=== PATIENT | female | born 1995 | race Caucasian/White ===

== ENCOUNTER 2018-04-05 07:01 | Inpatient (IN) | payer BC ==
[2018-04-05] MEDS ORDERED: diphenhydrAMINE 50 MG/ML SDV IVPUSH PRN (07:58)
[2018-04-05] MEDS ORDERED: fentaNYL 100 MCG/2 ML SDV EPIDUR PRN (07:58)
[2018-04-05] MEDS ORDERED: ePHEDrine 50 MG/ML SDV IVPUSH PRN (07:58)
[2018-04-05] MEDS ORDERED: Bupivacaine/fentaNYL/NS 100 ML Bag EPIDUR SCH (08:00)
[2018-04-05] MEDS ORDERED: Sodium Chloride 0.9% 10 ML Syringe FLUSH PRN (08:01)
[2018-04-05] MEDS ORDERED: Lactated Ringers 1,000 ML IV SCH (08:15)
[2018-04-05] MEDS ORDERED: Oxytocin/Lactated Ringers 10 UNIT/1,000 ML BAG IV SCH ×2 (08:15)
--- NOTE | 2018-04-05 08:38 | PCM.PREANE ---
Preanesthetic Assessment - Anesthesia/Transfusion/Family Hx Anesthesia History: Prior Anesthesia Without Reaction Family History of Anesthesia Reaction: No Transfusion History: No Prior Transfusion(s) - Review of Systems General: No Symptoms Pulmonary: No Symptoms Cardiovascular: No Symptoms Gastrointestinal: Abdominal Pain (labor contractions) Neurological: No Symptoms Other: Reports: None - Physical Assessment Pulse: 99 O2 Sat by Pulse Oximetry: 99 Respiratory Rate: 18 Blood Pressure: 112/63 Temperature: 36.7 C Vital Signs: Last Vital Signs Temp 36.7 C 04/05/18 07:20 Pulse 95 04/05/18 07:20 Resp 18 04/05/18 07:20 BP 112/63 04/05/18 07:20 Pulse Ox 99 04/05/18 07:20 Height: 1.7 m Weight: 89.086 kg ASA Class: 2 Mental Status: Alert & Oriented x3 Airway Class: Mallampati = 1 Dentition: Reports: Normal Dentition Thyro-Mental Finger Breadths: 3 Mouth Opening Finger Breadths: 3 ROM/Head Extension: Full Lungs: Clear to Auscultation, Normal Respiratory Effort Cardiovascular: Regular Rate, Regular Rhythm - Lab Values: Laboratory Last Values WBC 11.74 K/mm3 (3.98-10.04) H 04/05/18 07:50 RBC 3.47 M/mm3 (3.98-5.22) L 04/05/18 07:50 Hgb 10.1 gm/L (11.2-15.7) L 04/05/18 07:50 Hct 31.8 % (34.1-44.9) L 04/05/18 07:50 MCV 91.6 fl (79.4-94.8) 04/05/18 07:50 MCH 29.1 pg (25.6-32.2) 04/05/18 07:50 MCHC 31.8 g/dl (32.2-35.5) L 04/05/18 07:50 RDW Std Deviation 45.6 fL (36.4-46.3) 04/05/18 07:50 Plt Count 249 K/mm3 (182-369) 04/05/18 07:50 MPV 9.9 fl (9.4-12.3) 04/05/18 07:50 Neut % (Auto) 74.1 % (34.0-71.1) H 04/05/18 07:50 Lymph % (Auto) 17.0 % (19.3-51.7) L 04/05/18 07:50 [place] % (Auto) 7.2 % (4.7-12.5) 04/05/18 07:50 Eos % (Auto) 0.4 (0.7-5.8) L 04/05/18 07:50 Baso % (Auto) 0.3 % (0.1-1.2) 04/05/18 07:50 Neut # (Auto) 8.69 K/mm3 (1.56-6.13) H 04/05/18 07:50 Lymph # (Auto) 1.99 K/mm3 (1.18-3.74) 04/05/18 07:50 [place] # (Auto) 0.85 K/mm3 (0.24-0.36) H 04/05/18 07:50 Eos # (Auto) 0.05 K/mm3 (0.04-0.36) 04/05/18 07:50 Baso # (Auto) 0.04 K/mm3 (0.01-0.08) 04/05/18 07:50 - Allergies Allergies/Adverse Reactions: Allergies Allergy/AdvReac Type Severity Reaction Status Date / Time hydrocodone AdvReac Nausea Verified 04/05/18 08:02 - Anesthesia Plan Pre-Op Medication Ordered: None - Acknowledgements Anesthesia Type Planned: Epidural Pt an Appropriate Candidate for the Planned Anesthesia: Yes Alternatives and Risks of Anesthesia Discussed w Pt/Guardian: Yes Pt/Guardian Understands and Agrees with Anesthesia Plan: Yes PreAnesthesia Questionnaire HEENT History: Reports: Glaucoma [employer]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, Other OB/BYN History: invetro - Past Surgical History HEENT Surgical History: Reports: Oral Surgery ([place] tooth extraction), Tonsillectomy GI Surgical History: Reports: Colonoscopy Female Surgical History: Reports: Other (See Below) (Fulguration of endometriosis) - SUBSTANCE USE Smoking Status *Q: Former Smoker Tobacco Use Within Last Twelve Months: No Second Hand Smoke Exposure: No Days Per Week of Alcohol Use: 0 Number of Drinks Per Day: 0 Total Drinks Per Week: 0 Recreational Drug Use History: No - HOME MEDS Home Medications: Home Meds Estradiol 0 mg PO DAILY 08/06/16 [History] Glaucoma Gtt 1 drop TOP BID 08/06/16 [History] PNV95/Ferrous Fumarate/FA [ Tablet] 1 tab PO DAILY 08/06/16 [History] Progesterone 0 mg INJECT DAILY 08/06/16 [History] - CURRENT (IN HOUSE) MEDS Current Meds: Current Medications Diphenhydramine HCl (Benadryl) 25 mg IVPUSH Q6H PRN PRN Reason: Itching Ephedrine Sulfate (Ephedrine Sulfate) 5 mg IVPUSH ASDIRECTED PRN PRN Reason: HYPOTENTSION Fentanyl (Sublimaze) 100 mcg EPIDUR Q3H PRN PRN Reason: Pain Fentanyl/Bupivacaine HCl (Fentanyl/Bupivacaine/Ns 2 Mcg-0.125% 100 Ml) 100 ml EPIDUR ASDIRECTED ALAYNA Lactated Ringer's (Ringers, Lactated) 1,000 mls @ 100 mls/hr IV ASDIRECTED ALAYNA Last Admin: 04/05/18 08:13 Dose: 100 mls/hr Oxytocin/Lactated Ringer's (Pitocin In Lr 10 Units/1,000 Ml) 10 unit in 1,000 mls @ 12 mls/hr IV TITRATE ALAYNA; Protocol Last Admin: 04/05/18 08:13 Dose: 2 munits/min, 12 mls/hr Oxytocin/Lactated Ringer's (Pitocin In Lr 10 Units/1,000 Ml) 10 unit in 1,000 mls @ 100 mls/hr IV .CONTINUOUS ALAYNA Sodium Chloride (Saline Flush) 10 ml FLUSH ASDIRECTED PRN PRN Reason: Keep Vein Open
--- NOTE | 2018-04-05 10:25 | PCM.LDHP ---
L&D History of Present Illness - General Date of Service: 04/05/18 Admit Problem/Dx: Patient Status Order with Admit Dx/Problem 04/05/18 08:01 Patient Status [ADT] Routine Admission Diagnosis/Problem Admission Diagnosis/Problem Source of Information: Patient History Limitations: Reports: No Limitations - History of Present Illness Introduction:: Patient is a 22 y/o at 39 0/7 wks who presents for elective IOL. Doing well. Has had some contractions. No LOF or VB. No other concerns. - Related Data Allergies/Adverse Reactions: Allergies Allergy/AdvReac Type Severity Reaction Status Date / Time hydrocodone AdvReac Nausea Verified 04/05/18 08:02 Home Medications: Home Meds Estradiol 0 mg PO DAILY 08/06/16 [History] Glaucoma Gtt 1 drop TOP BID 08/06/16 [History] PNV95/Ferrous Fumarate/FA [ Tablet] 1 tab PO DAILY 08/06/16 [History] Progesterone 0 mg INJECT DAILY 08/06/16 [History] Past Medical History HEENT History: Reports: Glaucoma [employer]ED P[employer] History: Reports: Endometriosis, : 2 Para: 1 ( twins) LMP (Approximate): - Past Surgical History HEENT Surgical History: Reports: Oral Surgery ([place] tooth extraction), Tonsillectomy GI Surgical History: Reports: Colonoscopy Female Surgical History: Reports: Other (See Below) (Fulguration of endometriosis) Social & Family History - Family History Family Medical History: Noncontributory - Tobacco Use Smoking Status *Q: Former Smoker Years of Tobacco use: 1 Packs/Tins Daily: 0.5 Used Tobacco, but Quit: No Second Hand Smoke Exposure: No - Caffeine Use Caffeine Use: Reports: None - Alcohol Use Alcohol Use History: No Days Per Week of Alcohol Use: 0 Number of Drinks Per Day: 0 Total Drinks Per Week: 0 - Recreational Drug Use Recreational Drug Use: No - Living Situation & Occupation Living situation: Reports: , with Spouse Occupation: Employed H&P Review of Systems - Review of Systems: Review Of Systems: See Below General: Reports: No Symptoms Pulmonary: Reports: No Symptoms Cardiovascular: Reports: No Symptoms Gastrointestinal: Reports: No Symptoms Genitourinary: Reports: No Symptoms Musculoskeletal: Reports: No Symptoms Neurological: Reports: No Symptoms L&D Exam - Exam Exam: See Below - Vital Signs Vital Signs: Last Vital Signs Temp 36.7 C 04/05/18 08:38 Pulse 99 04/05/18 08:38 Resp 18 04/05/18 08:38 BP 112/63 04/05/18 08:38 Pulse Ox 99 04/05/18 08:38 Weight: 89.086 kg - OB Specific Contraction Intensity: Irritability Movement: Active Heart Tones: Present Heart Tones per Min: 145 Heart Rate (FHR) Variability: Moderate (6-25 bmp) Presentation: Vertex - Jose Score Jose Score Cervix Position: Midposition Jose Score Consistency: Soft Jose Score Effacement: 51-70% Jose Score Dilation: 1-2 cm Jose Score 's Station: -2 Jose Score Total: 7 - Exam General: Alert, Oriented, Cooperative Lungs: Clear to Auscultation, Normal Respiratory Effort Cardiovascular: Regular Rate, Regular Rhythm GI/Abdominal Exam: Soft, Non-Tender Genitourinary: Normal external exam Extremities: Normal Inspection Skin: Warm, Dry, Intact - Patient Data Lab Results Last 24 hrs: Laboratory Results - last 24 hr 04/05/18 Range/Units 07:50 WBC 11.74 H (3.98-10.04) K/mm3 RBC 3.47 L (3.98-5.22) M/mm3 Hgb 10.1 L (11.2-15.7) gm/L Hct 31.8 L (34.1-44.9) % MCV 91.6 (79.4-94.8) fl MCH 29.1 (25.6-32.2) pg MCHC 31.8 L (32.2-35.5) g/dl RDW Std Deviation 45.6 (36.4-46.3) fL Plt Count 249 (182-369) K/mm3 MPV 9.9 (9.4-12.3) fl Neut % (Auto) 74.1 H (34.0-71.1) % Lymph % (Auto) 17.0 L (19.3-51.7) % [place] % (Auto) 7.2 (4.7-12.5) % Eos % (Auto) 0.4 L (0.7-5.8) Baso % (Auto) 0.3 (0.1-1.2) % Neut # (Auto) 8.69 H (1.56-6.13) K/mm3 Lymph # (Auto) 1.99 (1.18-3.74) K/mm3 [place] # (Auto) 0.85 H (0.24-0.36) K/mm3 Eos # (Auto) 0.05 (0.04-0.36) K/mm3 Baso # (Auto) 0.04 (0.01-0.08) K/mm3 Manual Slide Review Normal smear Result Diagrams: 04/05/18 07:50 - Problem List (1) 39 weeks gestation of SNOMED Code(s): 05450324 ICD Code: Z3A.39 - 39 WEEKS GESTATION OF Status: Acute Current Visit: Yes (2) Rh negative state in antepartum period SNOMED Code(s): 268828640 ICD Code: O09.899 - SUPERVISION OF OTHER HIGH RISK PREGNANCIES, UNSP TRIMESTER; Z67.91 - UNSPECIFIED BLOOD TYPE, RH NEGATIVE Status: Acute Current Visit: Yes Problem List Initiated/Reviewed/Updated: Yes Orders Last 24hrs: Active Orders 24 hr Category Date Time Status Patient Status [ADT] Routine ADT 04/05/18 08:01 Active Activity as Tolerated [RC] PFP Care 04/05/18 08:01 Active Communication Order [RC] ASDIRECTED Care 04/05/18 07:58 Active Communication Order [RC] ASDIRECTED Care 04/05/18 08:01 Active Cooling Warming Measures [RC] ASDIRECTED Care 04/05/18 07:57 Active Heart Tones [RC] ASDIRECTED Care 04/05/18 08:02 Active Non Stress Test [RC] PER UNIT ROUTINE Care 04/05/18 08:01 Active Notify Provider [RC] ASDIRECTED Care 04/05/18 07:58 Active Notify Provider [RC] PFP Care 04/05/18 08:01 Active Notify Provider [RC] PRN Care 04/05/18 08:01 Active Oxygen Therapy [RC] ASDIRECTED Care 04/05/18 07:57 Active Peripheral IV Care [RC] . DIRECTED Care 04/05/18 08:02 Active Pulse Oximetry [RC] ASDIRECTED Care 04/05/18 07:57 Active Verify Patient Consent Obtain [RC] ASDIRECTED Care 04/05/18 07:58 Active Vital Signs [RC] ASDIRECTED Care 04/05/18 07:57 Active Vital Signs [RC] PER UNIT ROUTINE Care 04/05/18 08:01 Active Regular Diet [DIET] Diet 04/05/18 Breakfast Active RAPID PLASMA REAGIN,RPR [CHEM] Stat Lab 04/05/18 07:50 Received Bupivacaine/fentaNYL/NS [fentaNYL/Bupivacaine/NS 2 MCG- Med 04/05/18 08:00 Active 0.125% 100 ML] 100 ml EPIDUR ASDIRECTED Lactated Ringers [Ringers, Lactated] 1,000 ml Med 04/05/18 08:15 Active IV ASDIRECTED Oxytocin/Lactated Ringers [Pitocin in LR 10 Units/1,000 Med 04/05/18 08:15 Active ML] 10 unit in 1,000 ml IV .CONTINUOUS Oxytocin/Lactated Ringers [Pitocin in LR 10 Units/1,000 Med 04/05/18 08:15 Active ML] 10 unit in 1,000 ml IV TITRATE Sodium Chloride 0.9% [Saline Flush] Med 04/05/18 08:01 Active 10 ml FLUSH ASDIRECTED PRN diphenhydrAMINE [Benadryl] Med 04/05/18 07:58 Active 25 mg IVPUSH Q6H PRN ePHEDrine [ePHEDrine Sulfate] Med 04/05/18 07:58 Active 5 mg IVPUSH ASDIRECTED PRN fentaNYL [Sublimaze] Med 04/05/18 07:58 Active 100 mcg EPIDUR Q3H PRN Electronic Heart Tones Ext w TOCO [WOMSER] Oth 04/05/18 08:01 Ordered Routine Electronic Heart Tones Internal [WOMSER] Per Unit Oth 04/05/18 08:01 Ordered Routine Peripheral IV Insertion Adult [OM.PC] Routine Oth 04/05/18 08:01 Ordered Resuscitation Status Routine Resus Stat 04/05/18 08:01 Ordered Medication Orders Diphenhydramine HCl (Benadryl) 25 mg IVPUSH Q6H PRN PRN Reason: Itching Ephedrine Sulfate (Ephedrine Sulfate) 5 mg IVPUSH ASDIRECTED PRN PRN Reason: HYPOTENTSION Fentanyl (Sublimaze) 100 mcg EPIDUR Q3H PRN PRN Reason: Pain Fentanyl/Bupivacaine HCl (Fentanyl/Bupivacaine/Ns 2 Mcg-0.125% 100 Ml) 100 ml EPIDUR ASDIRECTED ALAYNA Lactated Ringer's (Ringers, Lactated) 1,000 mls @ 100 mls/hr IV ASDIRECTED ALAYNA Last Admin: 04/05/18 08:13 Dose: 100 mls/hr Oxytocin/Lactated Ringer's (Pitocin In Lr 10 Units/1,000 Ml) 10 unit in 1,000 mls @ 12 mls/hr IV TITRATE ALAYNA; Protocol Last Titration: 04/05/18 09:45 Dose: 6 munits/min, 36 mls/hr Titration: 04/05/18 09:05 Dose: 4 munits/min, 24 mls/hr Admin: 04/05/18 08:13 Dose: 2 munits/min, 12 mls/hr Oxytocin/Lactated Ringer's (Pitocin In Lr 10 Units/1,000 Ml) 10 unit in 1,000 mls @ 100 mls/hr IV .CONTINUOUS ALAYNA Sodium Chloride (Saline Flush) 10 ml FLUSH ASDIRECTED PRN PRN Reason: Keep Vein Open Assessment/Plan Comment:: 22 y/o at 39 0/7 wks who presents for elective IOL * CBC, T&S, RPR * GBS negative, no need for antibiotics * Pitocin to be started, AROM when able * Pain management per patient preference * Anticipate
--- NOTE | 2018-04-05 13:01 | PCM.PNLD ---
Labor Progress Note - VS & Meds Vital Signs: Last Vital Signs Temp 36.7 C 04/05/18 08:38 Pulse 99 04/05/18 08:38 Resp 18 04/05/18 08:38 BP 112/63 04/05/18 08:38 Pulse Ox 99 04/05/18 08:38 Active Medications: Current Medications Diphenhydramine HCl (Benadryl) 25 mg IVPUSH Q6H PRN PRN Reason: Itching Ephedrine Sulfate (Ephedrine Sulfate) 5 mg IVPUSH ASDIRECTED PRN PRN Reason: HYPOTENTSION Fentanyl (Sublimaze) 100 mcg EPIDUR Q3H PRN PRN Reason: Pain Fentanyl/Bupivacaine HCl (Fentanyl/Bupivacaine/Ns 2 Mcg-0.125% 100 Ml) 100 ml EPIDUR ASDIRECTED ALAYNA Lactated Ringer's (Ringers, Lactated) 1,000 mls @ 100 mls/hr IV ASDIRECTED ALAYNA Last Admin: 04/05/18 08:13 Dose: 100 mls/hr Oxytocin/Lactated Ringer's (Pitocin In Lr 10 Units/1,000 Ml) 10 unit in 1,000 mls @ 12 mls/hr IV TITRATE ALAYNA; Protocol Last Titration: 04/05/18 11:34 Dose: 11 munits/min, 66 mls/hr Oxytocin/Lactated Ringer's (Pitocin In Lr 10 Units/1,000 Ml) 10 unit in 1,000 mls @ 100 mls/hr IV .CONTINUOUS ALAYNA Sodium Chloride (Saline Flush) 10 ml FLUSH ASDIRECTED PRN PRN Reason: Keep Vein Open - Uterine Contractions Uterine Monitoring Mode: External [place] Contraction Intensity: Mild to Moderate Uterine Resting Tone: Soft - Monitoring Monitor Mode: External Ultrasound Heart Rate (FHR) Baseline: 140 Heart Rate (FHR) Variability: Moderate (6-25 bmp) Accelerations: Present, 15x15 Decelerations: None Strip Review: Category I - Vaginal Exam Dilation (cm): 2 Effacement (Percent): 75 Station: -2 Cervical Position: Midposition - Labor Progress (Free Text) Labor Progress: Doing well. Feeling mildly uncomfortable with contractions. AROM performed. Continue present management
--- NOTE | 2018-04-05 17:20 | PCM.SN ---
- Free Text/Narrative Note: 1705 called to room 29 for c/o pain. Patient educated on pain coverage of an epidural. Epidural gtt increased to 16ml/hr VSS out of room at 1720
--- NOTE | 2018-04-05 19:20 | PCM.DEL ---
L & D Note - General Info Date of Service: 04/05/18 - Delivery Note Labor: Induced by ARM, Induced by Oxytocin Delivery Outcome: Livebirth Infant Delivery Method: Spontaneous Vaginal Delivery-Single Infant Delivery Mode: Spontaneous Presentation: Right Occiput Anterior (MONICA) Nuchal Cord: None Anesthesia Type: Epidural Amniotic Fluid Description: Clear Episiotomy Type: None Laceration: None Placenta: Intact, Spontaneous Cord: 3 Vessels Estimated Blood Loss: 100 Resuscitation Needed: Yes House: Bulb Syringe, Stimulated, Warmed, [place] Used, Warmer Used Delivery Comments (Free Text/Narrative):: Patient found to be complete and began pushing. With maternal pushing effort head delivered from an [place] presentation. No nuchal cord present. With gentle downward traction the shoulders and body delivered. placed on maternal abdomen. Cord clamped and cut. Cord blood obtained. Placenta allowed time to separate and expelled intact. Inspection of the perineum showed no lacerations. - General Info Date of Service: 04/05/18 - Patient Data Vitals - Most Recent: Last Vital Signs Temp 36.7 C 04/05/18 08:38 Pulse 99 04/05/18 08:38 Resp 18 04/05/18 08:38 BP 112/63 04/05/18 08:38 Pulse Ox 99 04/05/18 08:38 Weight - Most Recent: 89.086 kg I&O - Last 24 Hours: Intake & Output 04/05/18 04/05/18 04/05/18 06:59 14:59 22:59 Intake Total 120 120 Balance 120 120 Lab Results Last 24 Hours: Laboratory Results - last 24 hr 04/05/18 04/05/18 Range/Units 07:50 07:50 WBC 11.74 H (3.98-10.04) K/mm3 RBC 3.47 L (3.98-5.22) M/mm3 Hgb 10.1 L (11.2-15.7) gm/L Hct 31.8 L (34.1-44.9) % MCV 91.6 (79.4-94.8) fl MCH 29.1 (25.6-32.2) pg MCHC 31.8 L (32.2-35.5) g/dl RDW Std Deviation 45.6 (36.4-46.3) fL Plt Count 249 (182-369) K/mm3 MPV 9.9 (9.4-12.3) fl Neut % (Auto) 74.1 H (34.0-71.1) % Lymph % (Auto) 17.0 L (19.3-51.7) % [place] % (Auto) 7.2 (4.7-12.5) % Eos % (Auto) 0.4 L (0.7-5.8) Baso % (Auto) 0.3 (0.1-1.2) % Neut # (Auto) 8.69 H (1.56-6.13) K/mm3 Lymph # (Auto) 1.99 (1.18-3.74) K/mm3 [place] # (Auto) 0.85 H (0.24-0.36) K/mm3 Eos # (Auto) 0.05 (0.04-0.36) K/mm3 Baso # (Auto) 0.04 (0.01-0.08) K/mm3 Manual Slide Review Normal smear RPR Non-reactive (NONREACTIVE) Med Orders - Current: Current Medications Diphenhydramine HCl (Benadryl) 25 mg IVPUSH Q6H PRN PRN Reason: Itching Ephedrine Sulfate (Ephedrine Sulfate) 5 mg IVPUSH ASDIRECTED PRN PRN Reason: HYPOTENTSION Fentanyl (Sublimaze) 100 mcg EPIDUR Q3H PRN PRN Reason: Pain Last Admin: 04/05/18 15:58 Dose: 100 mcg Fentanyl/Bupivacaine HCl (Fentanyl/Bupivacaine/Ns 2 Mcg-0.125% 100 Ml) 100 ml EPIDUR ASDIRECTED ALAYNA Last Admin: 04/05/18 15:58 Dose: 100 ml Lactated Ringer's (Ringers, Lactated) 1,000 mls @ 100 mls/hr IV ASDIRECTED ALAYNA Last Admin: 04/05/18 08:13 Dose: 100 mls/hr Oxytocin/Lactated Ringer's (Pitocin In Lr 10 Units/1,000 Ml) 10 unit in 1,000 mls @ 12 mls/hr IV TITRATE ALAYNA; Protocol Last Titration: 04/05/18 17:45 Dose: 18 munits/min, 108 mls/hr Oxytocin/Lactated Ringer's (Pitocin In Lr 10 Units/1,000 Ml) 10 unit in 1,000 mls @ 100 mls/hr IV .CONTINUOUS ALAYNA Sodium Chloride (Saline Flush) 10 ml FLUSH ASDIRECTED PRN PRN Reason: Keep Vein Open - Problem List & Annotations (1) 39 weeks gestation of SNOMED Code(s): 58522563 Code(s): Z3A.39 - 39 WEEKS GESTATION OF Status: Acute Current Visit: Yes (2) Rh negative state in antepartum period SNOMED Code(s): 904475271 Code(s): O09.899 - SUPERVISION OF OTHER HIGH RISK PREGNANCIES, UNSP TRIMESTER ; Z67.91 - UNSPECIFIED BLOOD TYPE, RH NEGATIVE Status: Acute Current Visit: Yes (3) Vaginal delivery SNOMED Code(s): 915846098 Code(s): O80 - ENCOUNTER FOR FULL-TERM UNCOMPLICATED DELIVERY Status: Acute Current Visit: Yes - Problem List Review Problem List Initiated/Reviewed/Updated: Yes - My Orders Last 24 Hours: My Active Orders 04/05/18 08:01 Patient Status [ADT] Routine Activity as Tolerated [RC] PFP Communication Order [RC] ASDIRECTED Non Stress Test [RC] PER UNIT ROUTINE Notify Provider [RC] PFP Notify Provider [RC] PRN Vital Signs [RC] PER UNIT ROUTINE Sodium Chloride 0.9% [Saline Flush] 10 ml FLUSH ASDIRECTED PRN Electronic Heart Tones Ext w TOCO [WOMSER] Routine Electronic Heart Tones Internal [WOMSER] Per Unit Routine Peripheral IV Insertion Adult [OM.PC] Routine Resuscitation Status Routine 04/05/18 08:02 Heart Tones [RC] ASDIRECTED Peripheral IV Care [RC] . DIRECTED 04/05/18 08:15 Lactated Ringers [Ringers, Lactated] 1,000 ml IV ASDIRECTED Oxytocin/Lactated Ringers [Pitocin in LR 10 Units/1,000 ML] 10 unit in 1,000 ml IV .CONTINUOUS Oxytocin/Lactated Ringers [Pitocin in LR 10 Units/1,000 ML] 10 unit in 1,000 ml IV TITRATE 04/05/18 Breakfast Regular Diet [DIET] - Assessment Assessment:: 22 y/o G2 now P1103 PPD#0 from at 39 0/7 wks - Plan Plan:: * Routine cares * Encourage breast feeding * Mom Rh negative, will assess blood type to see if Rhogam required * Discharge home in 1-2 days
[2018-04-05] MEDS ORDERED: Witch Hazel Medicated Pads 100/Jar TOP PRN (19:42)
[2018-04-05] MEDS ORDERED: Benzocaine/Menthol 20%-0.5% Spray 56 GM Canister TOP PRN (19:42)
[2018-04-05] MEDS ORDERED: Docusate Sodium 100 MG Cap PO PRN (19:42)
[2018-04-05] MEDS ORDERED: Lanolin 100% Cream 7 GM Tube TOP PRN (19:42)
[2018-04-05] MEDS ORDERED: Bupivacaine 0.25% 10 ML SDV ONE (22:00)
[2018-04-05] MEDS: Ibuprofen 600 MG Tab PO PRN (22:30)
[2018-04-06] MEDS: Acetaminophen 325 MG Tab PO PRN ×4 (01:22→16:25)
[2018-04-06] MEDS: Ibuprofen 600 MG Tab PO PRN ×2 (04:59→11:37)
--- NOTE | 2018-04-06 05:30 | PCM.PNPP ---
- General Info Date of Service: 04/06/18 Functional Status: Reports: Pain Controlled, Tolerating Diet, Ambulating, Urinating - Review of Systems General: Reports: No Symptoms Pulmonary: Reports: No Symptoms Cardiovascular: Reports: No Symptoms Gastrointestinal: Reports: No Symptoms Genitourinary: Reports: No Symptoms Musculoskeletal: Reports: No Symptoms Neurological: Reports: No Symptoms - Patient Data Vital Signs - Most Recent: Last Vital Signs Temp 37.1 C 04/06/18 03:49 Pulse 77 04/06/18 03:49 Resp 16 04/06/18 03:49 BP 111/73 04/06/18 03:49 Pulse Ox 99 04/06/18 03:49 Weight - Most Recent: 89.086 kg I&O - Last 24 Hours: Intake & Output 04/05/18 04/05/18 04/06/18 14:59 22:59 06:59 Intake Total 120 1120 2 Balance 120 1120 2 Lab Results - Last 24 Hours: Laboratory Results - last 24 hr 04/05/18 04/05/18 04/05/18 Range/Units 07:50 07:50 22:00 WBC 11.74 H (3.98-10.04) K/mm3 RBC 3.47 L (3.98-5.22) M/mm3 Hgb 10.1 L (11.2-15.7) gm/L Hct 31.8 L (34.1-44.9) % MCV 91.6 (79.4-94.8) fl MCH 29.1 (25.6-32.2) pg MCHC 31.8 L (32.2-35.5) g/dl RDW Std Deviation 45.6 (36.4-46.3) fL Plt Count 249 (182-369) K/mm3 MPV 9.9 (9.4-12.3) fl Neut % (Auto) 74.1 H (34.0-71.1) % Lymph % (Auto) 17.0 L (19.3-51.7) % [place] % (Auto) 7.2 (4.7-12.5) % Eos % (Auto) 0.4 L (0.7-5.8) Baso % (Auto) 0.3 (0.1-1.2) % Neut # (Auto) 8.69 H (1.56-6.13) K/mm3 Lymph # (Auto) 1.99 (1.18-3.74) K/mm3 [place] # (Auto) 0.85 H (0.24-0.36) K/mm3 Eos # (Auto) 0.05 (0.04-0.36) K/mm3 Baso # (Auto) 0.04 (0.01-0.08) K/mm3 Manual Slide Review Normal smear RPR Non-reactive (NONREACTIVE) Blood Type A NEGATIVE Gel Antibody Screen Positive Screen 0 ros/5 flds - neg RhIG Candidate? Yes Rhogam Indicated Yes, baby rh pos H Med Orders - Current: Current Medications Acetaminophen (Tylenol) 650 mg PO Q4H PRN PRN Reason: mild pain or fever Last Admin: 04/06/18 01:22 Dose: 650 mg Benzocaine/Menthol (Dermoplast Pain Relief [place]) 0 gm TOP ASDIRECTED PRN PRN Reason: Perineal Comfort Measure Last Admin: 04/05/18 21:09 Dose: 1 applic Docusate Sodium (Colace) 100 mg PO BID PRN PRN Reason: Constipation Emollient Ointment (Lansinoh Hpa) 0 gm TOP ASDIRECTED PRN PRN Reason: Sore Nipples Ibuprofen (Motrin) 600 mg PO Q6H PRN PRN Reason: Mild pain or fever Last Admin: 04/06/18 04:59 Dose: 600 mg Witch Barbara (Tucks) 1 pad TOP ASDIRECTED PRN PRN Reason: Hemorrhoid pain Last Admin: 04/05/18 21:08 Dose: 1 applic Discontinued Medications Diphenhydramine HCl (Benadryl) 25 mg IVPUSH Q6H PRN PRN Reason: Itching Ephedrine Sulfate (Ephedrine Sulfate) 5 mg IVPUSH ASDIRECTED PRN PRN Reason: HYPOTENTSION Fentanyl (Sublimaze) 100 mcg EPIDUR Q3H PRN PRN Reason: Pain Last Admin: 04/05/18 15:58 Dose: 100 mcg Fentanyl/Bupivacaine HCl (Fentanyl/Bupivacaine/Ns 2 Mcg-0.125% 100 Ml) 100 ml EPIDUR ASDIRECTED ALAYNA Last Admin: 04/05/18 15:58 Dose: 100 ml Lactated Ringer's (Ringers, Lactated) 1,000 mls @ 100 mls/hr IV ASDIRECTED ALAYNA Last Admin: 04/05/18 08:13 Dose: 100 mls/hr Oxytocin/Lactated Ringer's (Pitocin In Lr 10 Units/1,000 Ml) 10 unit in 1,000 mls @ 12 mls/hr IV TITRATE ALAYNA; Protocol Last Titration: 04/05/18 19:05 Dose: 500 mls/hr Oxytocin/Lactated Ringer's (Pitocin In Lr 10 Units/1,000 Ml) 10 unit in 1,000 mls @ 100 mls/hr IV .CONTINUOUS ALAYNA Last Admin: 04/05/18 19:30 Dose: 500 mls/hr Sodium Chloride (Saline Flush) 10 ml FLUSH ASDIRECTED PRN PRN Reason: Keep Vein Open - Interaction Disposition, : in Room with Family Interaction: Holding Infant Infant Feeding: Breastfed Infant; Nursed Well Support Person: - Recovery Exam Fundal Tone: Firm Fundal Level: At Umbilicus Fundal Placement: Midline Lochia Amount: Small Lochia Color: Rubra/Red Perineum Description: Intact, Minimal Bruising/Swelling Bladder Status: Voiding - Exam General: Alert, Oriented, Cooperative GI/Abdominal Exam: Soft, Non-Tender Extremities: Normal Inspection Skin: Warm, Dry, Intact - Problem List & Annotations (1) 39 weeks gestation of SNOMED Code(s): 72203342 Code(s): Z3A.39 - 39 WEEKS GESTATION OF Status: Acute Current Visit: Yes (2) Rh negative state in antepartum period SNOMED Code(s): 031535976 Code(s): O09.899 - SUPERVISION OF OTHER HIGH RISK PREGNANCIES, UNSP TRIMESTER ; Z67.91 - UNSPECIFIED BLOOD TYPE, RH NEGATIVE Status: Acute Current Visit: Yes (3) Vaginal delivery SNOMED Code(s): 638511439 Code(s): O80 - ENCOUNTER FOR FULL-TERM UNCOMPLICATED DELIVERY Status: Acute Current Visit: Yes - Problem List Review Problem List Initiated/Reviewed/Updated: Yes - My Orders Last 24 Hours: My Active Orders 04/05/18 08:01 Resuscitation Status Routine 04/05/18 08:02 Heart Tones [RC] ASDIRECTED Peripheral IV Care [RC] . DIRECTED 04/05/18 19:42 Activity as Tolerated [RC] PER UNIT ROUTINE Vital Signs [RC] 03,09,15,21 Acetaminophen [Tylenol] 650 mg PO Q4H PRN Benzocaine/Menthol [Dermoplast Pain Relief Edwards] See Dose Instructions TOP ASDIRECTED PRN Docusate Sodium [Colace] 100 mg PO BID PRN Ibuprofen [Motrin] 600 mg PO Q6H PRN Lanolin [Lansinoh HPA] See Dose Instructions TOP ASDIRECTED PRN Witch Barbara [Tucks] 1 pad TOP ASDIRECTED PRN Assess Lochia [WOMSER] Per Unit Routine Assess Uterine Involution [WOMSER] Per Unit Routine Breast Pump [WOMSER] Per Unit Routine Heat Therapy [OM.PC] PRN Ice Therapy [OM.PC] Per Unit Routine Perineal Care [OM.PC] Per Unit Routine Peripheral IV Discontinue [OM.PC] Routine Sitz Bath [OM.PC] Per Unit Routine 04/05/18 22:00 ANTIBODY IDENTIFICATION [BBK] Routine SCREEN [BBK] Routine PATIENT RETYPE [BBK] Routine RH IMMUNE GLOBULIN [BBK] Routine RHOGAM, [RHIG WORKUP, ] [BBK] Routine 04/05/18 Dinner Regular Diet [DIET] 04/06/18 19:42 Heat Therapy [OM.PC] PRN - Assessment Assessment:: 22 y/o G2 now P1103 PPD#1 from at 39 0/7 wks - Plan Plan:: * Routine cares * Encourage breast feeding * Mom Rh negative, Baby Rh positive. Will give dose of Rhogam * Discharge home today
--- NOTE | 2018-04-06 09:21 | PCM48HPAN ---
Post Anesthesia Note - EVALUATION WITHIN 48HRS OF ANESTHETIC Vital Signs in Normal Range: Yes Patient Participated in Evaluation: Yes Respiratory Function Stable: Yes Airway Patent: Yes Cardiovascular Function Stable: Yes Hydration Status Stable: Yes Pain Control Satisfactory: Yes Nausea and Vomiting Control Satisfactory: Yes Mental Status Recovered: Yes Pulse Rate: 77 Resp Rate: 16 Temperature: 37.1 C Blood Pressure: 111/73
--- NOTE | 2018-04-06 10:29 | PCM.DCSUM1 ---
Discharge Summary - Discharge Data Discharge Date: 04/06/18 Discharge Disposition: Home, Self-Care 01 Condition: Good - Discharge Diagnosis/Problem(s) (1) 39 weeks gestation of SNOMED Code(s): 30889622 ICD Code: Z3A.39 - 39 WEEKS GESTATION OF Status: Acute Current Visit: Yes (2) Rh negative state in antepartum period SNOMED Code(s): 544499334 ICD Code: O09.899 - SUPERVISION OF OTHER HIGH RISK PREGNANCIES, UNSP TRIMESTER; Z67.91 - UNSPECIFIED BLOOD TYPE, RH NEGATIVE Status: Acute Current Visit: Yes (3) Vaginal delivery SNOMED Code(s): 998385903 ICD Code: O80 - ENCOUNTER FOR FULL-TERM UNCOMPLICATED DELIVERY Status: Acute Current Visit: Yes - Patient Summary/Data Complications: None Consults: None Recommended Follow-up Testing/Procedures: Follow up in 3-6 weeks for exam Hospital Course: 22 y/o presented at 39 0/7 wks who presented for IOL. This was done with pitocin and AROM. She progressed well to complete dilation. She underwent an uncomplicated . See delivery note. she did well and was discharged home on PPD#1 - Patient Instructions Diet: Regular Diet as Tolerated Activity: As Tolerated Activity, Other: Pelvic Rest for 6 weeks Driving: May Drive Today Showering/Bathing: May Shower Showering/Bathing, Other: May Bathe Notify Provider of: Fever, Increased Pain, Swelling and Redness, Drainage, Nausea and/or Vomiting - Discharge Plan *PRESCRIPTION DRUG MONITORING PROGRAM REVIEWED*: Not Applicable *COPY OF PRESCRIPTION DRUG MONITORING REPORT IN PATIENT MICA: Not Applicable Home Medications: Home Meds PNV95/Ferrous Fumarate/FA [ Tablet] 1 tab PO DAILY 08/06/16 [History] Docusate Sodium [Colace] 100 mg PO BID PRN cap 04/05/18 [Rx] Ibuprofen [Motrin] 600 mg PO Q6H PRN tablet 04/05/18 [Rx] Referrals: Monse Calloway MD [Primary Care Provider] - (3-6 weeks for check ) - Discharge Summary/Plan Comment DC Time >30 min.: No - Patient Data Vitals - Most Recent: Last Vital Signs Temp 37.1 C 04/06/18 09:21 Pulse 77 04/06/18 09:21 Resp 16 07/14/18 09:21 BP 111/73 04/06/18 09:21 Pulse Ox 99 04/06/18 09:05 Weight - Most Recent: 89.086 kg I&O - Last 24 hours: Intake & Output 04/05/18 04/06/18 04/06/18 22:59 06:59 14:59 Intake Total 1120 2 Balance 1120 2 Lab Results - Last 24 hrs: Laboratory Results - last 24 hr 04/05/18 04/05/18 Range/Units 07:50 22:00 RPR Non-reactive (NONREACTIVE) Blood Type A NEGATIVE Gel Antibody Screen Positive Screen 0 ros/5 flds - neg RhIG Candidate? Yes Rhogam Indicated Yes, baby rh pos H Med Orders - Current: Current Medications Acetaminophen (Tylenol) 650 mg PO Q4H PRN PRN Reason: mild pain or fever Last Admin: 04/06/18 08:02 Dose: 650 mg Benzocaine/Menthol (Dermoplast Pain Relief [place]) 0 gm TOP ASDIRECTED PRN PRN Reason: Perineal Comfort Measure Last Admin: 04/05/18 21:09 Dose: 1 applic Docusate Sodium (Colace) 100 mg PO BID PRN PRN Reason: Constipation Emollient Ointment (Lansinoh Hpa) 0 gm TOP ASDIRECTED PRN PRN Reason: Sore Nipples Last Admin: 04/06/18 08:04 Dose: 1 applicful Ibuprofen (Motrin) 600 mg PO Q6H PRN PRN Reason: Mild pain or fever Last Admin: 04/06/18 04:59 Dose: 600 mg Witch Barbara (Tucks) 1 pad TOP ASDIRECTED PRN PRN Reason: Hemorrhoid pain Last Admin: 04/05/18 21:08 Dose: 1 applic Discontinued Medications Diphenhydramine HCl (Benadryl) 25 mg IVPUSH Q6H PRN PRN Reason: Itching Ephedrine Sulfate (Ephedrine Sulfate) 5 mg IVPUSH ASDIRECTED PRN PRN Reason: HYPOTENTSION Fentanyl (Sublimaze) 100 mcg EPIDUR Q3H PRN PRN Reason: Pain Last Admin: 04/05/18 15:58 Dose: 100 mcg Fentanyl/Bupivacaine HCl (Fentanyl/Bupivacaine/Ns 2 Mcg-0.125% 100 Ml) 100 ml EPIDUR ASDIRECTED ALAYAN Last Admin: 04/05/18 15:58 Dose: 100 ml Lactated Ringer's (Ringers, Lactated) 1,000 mls @ 100 mls/hr IV ASDIRECTED ALAYNA Last Admin: 04/05/18 08:13 Dose: 100 mls/hr Oxytocin/Lactated Ringer's (Pitocin In Lr 10 Units/1,000 Ml) 10 unit in 1,000 mls @ 12 mls/hr IV TITRATE ALAYNA; Protocol Last Titration: 04/05/18 19:05 Dose: 500 mls/hr Oxytocin/Lactated Ringer's (Pitocin In Lr 10 Units/1,000 Ml) 10 unit in 1,000 mls @ 100 mls/hr IV .CONTINUOUS ALAYNA Last Admin: 04/05/18 19:30 Dose: 500 mls/hr Sodium Chloride (Saline Flush) 10 ml FLUSH ASDIRECTED PRN PRN Reason: Keep Vein Open
[2018-04-06 15:33] VITALS: BP 122/75
== END 2018-04-06 20:20 | disposition home or self-care (01) | DRG 560 ==
LOC: OBSVTOIN 07:01 → JD.OB 07:01
PROVIDERS: ADMIT Obstetrics & Gynecology; ATTEND Obstetrics & Gynecology
PROC: 10907ZC Drainage of Amniotic Fluid, Therapeutic from Products of Conception, Via Natural or Artificial Opening (ICD-10-PCS; principal; 2018-04-05)
PROC: 10E0XZZ Delivery of Products of Conception, External Approach (ICD-10-PCS; 2018-04-05)
PROC: 6A550ZT Pheresis of Cord Blood Stem Cells, Single (ICD-10-PCS; 2018-04-05)
PROC: 00HU33Z Insertion of Infusion Device into Spinal Canal, Percutaneous Approach (ICD-10-PCS; 2018-04-05)
PROC: 3E0R3BZ Introduction of Anesthetic Agent into Spinal Canal, Percutaneous Approach (ICD-10-PCS; 2018-04-05)
PROC: 3E0234Z Introduction of Serum, Toxoid and Vaccine into Muscle, Percutaneous Approach (ICD-10-PCS; 2018-04-06)
DX: O26.893 Other specified pregnancy related conditions, third trimester (principal); Z67.11 Type A blood, Rh negative; Z3A.39 39 weeks gestation of pregnancy; Z37.0 Single live birth
CPT/HCPCS: 36415; 51702; 59025; 59409; 85025; 86592; A9270-GY; J2590; J2790; J3010; J7120

== ENCOUNTER 2020-07-27 06:52 | Day surgery (SDC) | payer BC ==
--- NOTE | 2020-07-26 20:39 | PCM.HP.2 ---
H&P History of Present Illness - General Date of Service: 07/27/20 Admit Problem/Dx: Adrienne is a 25-year-old 2 para 1-1-0-3 white female who is scheduled for surgery on 07/27/2020 consisting of a bilateral labia minora plasty. Diagnosis is bilateral labia minora hypertrophy with irritation. The patient was seen initially in February [address] Calloway for evaluation of symptoms which included pain with intercourse bilabial pulling with the active intercourse. She also describes generalized discomfort on a daily basis, and increasing UTI and yeast infections. The patient has decreased her day-to-day activity, her sexual activity because of the discomfort. She feels there is swelling and irritation associated with the labial hypertrophy. She feels this is worsened since she has had her children. Conservative therapy measures have not worked. She has decreased the amount of exercise she does secondary to irritation caused by her labial hypertrophy. At the time of that evaluation physical exam showed lateral labial hypertrophy that was described as labia min ora are significantly elongated bilaterally. They are symmetrical. The midportion of the labia minora bilaterally tends to protrude approximately 4 cm from the base of the labia. There is significant redundancy noted. Mild to moderate inflammation was noted. Conservative measures have been discussed with patient as have her procedures intended to decrease the labia. Bilateral labia minora plasty is discussed in detail. Patient appears to understand the procedure, risks, benefits, limitations and follow-up. She wishes to proceed and has signed a consent. DB2 DBA history: Patient is a 2 para 1-1-0-3. She has had 1 vaginal delivery full-term and 1 set of twins . Largest baby was 8 pounds 11 ounces. 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 She has had history of an STI. No abnormal Pap smears in the past. She has been diagnosed with a minimal cystocele and minimal rectocele. Vasectomy and patient is not interested in procreation. Last Pap smear was performed 1 year ago at [facility] in [place] and was normal. Allergies: None Medications: 1. Latanoprost 0.005% ophthalmic solutioninstill 1 drop into right eye at bedtime 2. Atenolol maleate 0.5% ophthalmic solution used as directed Past medical history: 1. Vaginal delivery x21 twins at 34 weeks and full-term [place]inson delivery 2. Labial hypertrophy with significant irritation 3. Migraine headaches 4. History of injury to the eye/eye orbit. 5. Cataract Past surgical history: 1. History of complete colonoscopy 03/2014 2. History of laparoscopy with fulguration of endometriotic tissue in anterior and posterior cul-de-sac on 05/01/2014 3. History tonsillectomy and adenoidectomy 11/2004 Family history: Father with history of hypercholesterolemia and hypertension. Sister with bipolar disorder. Brother with hypertension. Paternal grandfather with history of alcohol abuse. Mother is alive but has osteoporosis and thyroid dysfunction. Paternal grandfather, maternal grandmother are alive and well. Paternal grandmother is alive and well. Paternal grandfather actually is secondary to pneumonia. There is no known family history of cancer, bleeding or clotting disorders, anesthesia related issues or related issues. Social history: Patient is . Lives in [place], [place]. Is a former smoker having smoked less than 1 pack/day for less than 5 years and quit in September 2014. Denies any drug or significant alcohol use. Review of systems: In general patient has complaints only referable to her vulvar area as described in the HPI. Skin: Negative Lungs: No infectious symptoms or shortness of breath Cardiovascular: No chest pain or exercise intolerance Breasts: No lumps, changes in size, pain, dimpling, discharge or axillary or supraclavicular concerns. GI: Negative : Per HPI Musculoskeletal: Negative Neurological: Negative In general the patient is well-developed, well-nourished, pleasant female of stated age in no acute distress. Skin is warm dry without lesions. HEENT, neck and back within normal limits. Lungs are clear with good breath sounds in all lung agee. Cardiovascular exam shows regular and rhythm without murmurs. Abdomen is flat, soft, nontender without masses or organomegaly. Positive bowel sounds are noted. No inguinal lymphadenopathy or hernias are noted. Genital exam on last evaluation in clinic shows normal external labia majora, BUS and pubic hair pattern. Labia minora are significantly elongated bilaterally. They are symmetrical. The midportion of the labia minora bilaterally appears to protrude approximately 4 cm from the base of the labia. There is significant redundancy apparent. Mild to moderate inflammation has been noted in the past. There is mild pelvic relaxation in the form of grade 1 cystocele and a grade 1 rectocele. There appears to be normal secretions and estrogenization of vagina. Uterus is small anterior freely mobile without parametrial induration or adnexal abnormalities. Repeat exam will be done under anesthesia at the time of surgery. Extremities and neurological exam are grossly within normal limits. Source of Information: Patient History Limitations: Reports: No Limitations - Related Data Allergies/Adverse Reactions: Allergies Allergy/AdvReac Type Severity Reaction Status Date / Time hydrocodone AdvReac Nausea Verified 04/05/18 08:02 Home Medications: Home Meds Pnv No.95/Ferrous Fum/Folic AC [ Tablet] 1 tab PO DAILY 08/06/16 [History] Docusate Sodium [Colace] 100 mg PO BID PRN cap 04/05/18 [Rx] Ibuprofen [Motrin] 600 mg PO Q6H PRN tablet 04/05/18 [Rx] Past Medical History HEENT History: Reports: Glaucoma DB2 DBA History: Reports: Endometriosis, Other OB/BYN History: invetro - Past Surgical History HEENT Surgical History: Reports: Oral Surgery ([place] tooth extraction), Tons illectomy GI Surgical History: Reports: Colonoscopy Female Surgical History: Reports: Other (See Below) (Fulguration of endometriosis) Social & Family History - Family History Family Medical History: Noncontributory - Caffeine Use Caffeine Use: Reports: None - Living Situation & Occupation Living situation: Reports: , with Spouse Occupation: Employed H&P Review of Systems - Review of Systems: Review Of Systems: See Below Exam - Exam Exam: See Below *Q Meaningful Use (ADM) - VTE Risk Assess *Q Each Risk Factor Represents 1 Point: None Total Score 1 Point Risk Factors: 0 Problem List Initiated/Reviewed/Updated: Yes Orders Last 24hrs: Active Orders 24 hr Category Date Time Status Peripheral IV Care [RC] . DIRECTED Care 07/27/20 07:00 Active Verify Patient Consent Obtain [RC] ASDIRECTED Care 07/27/20 07:00 Active HCG QUALITATIVE,URINE [URCHEM] Routine Lab 07/27/20 07:00 Ordered Lactated Ringers [Ringers, Lactated] 1,000 ml Med 07/27/20 07:00 Active IV ASDIRECTED Lidocaine 1%/Sod Bicarbonate [Buffered Lidocaine 1% in Med 07/27/20 07:00 Active NS 8.4%] 0.25 ml IDERM ONETIME PRN Sodium Chloride 0.9% [Saline Flush] Med 07/27/20 07:00 Active 10 ml FLUSH ASDIRECTED PRN Medication Administration Instruction [OM.PC] Routine Oth 07/27/20 07:00 Ordered Peripheral IV Insertion Adult [OM.PC] Routine Oth 07/27/20 07:00 Ordered Medication Orders Lactated Ringer's (Ringers, Lactated) 1,000 mls @ 125 mls/hr IV ASDIRECTED ALAYNA Stop: 07/27/20 23:00 Lidocaine/Sodium Bicarbonate (Buffered Lidocaine 1% In Ns 8.4%) 0.25 ml IDERM ONETIME PRN PRN Reason: Prior to IV Start Stop: 07/27/20 18:00 Sodium Chloride (Saline Flush) 10 ml FLUSH ASDIRECTED PRN PRN Reason: Keep Vein Open Stop: 07/27/20 18:00 Assessment/Plan Comment:: 1. Bilateral labia minora hypertrophy with irritationprogressive 2. Generally healthy young female. 3. Dyspareunia secondary to labia minora hypertrophy 4. Vasectomy for contraceptionpatient not interested in procreation Plan: 1. Bilateral labia minora plasty. Pending review of the anatomy at the time of surgery will most probably use the edge resection technique. Procedure, risk, benefits, limitations of procedure, follow-up all discussed with patient. She appears to understand and wishes to proceed. She has signed consent for the procedure. 2. DVT prophylaxis with SCDs 3. Infection prophylaxis with Ancef 2 g IV preop 4. Preop labs to consist of CBC, urine analysis, test
[2020-07-27] MEDS ORDERED: Sodium Chloride 0.9% 10 ML Syringe FLUSH PRN (07:00)
[2020-07-27] MEDS ORDERED: Lidocaine 1%/Sod Bicarbonate in NS 8.4% 1 ML Syringe IDERM PRN (07:00)
[2020-07-27] MEDS ORDERED: Lactated Ringers 1,000 ML IV SCH (07:00)
[2020-07-27] MEDS ORDERED: ceFAZolin 1 GM Vial ONE (07:09)
[2020-07-27] MEDS ORDERED: Rocuronium 50 MG/5 ML Vial ONE (07:09)
[2020-07-27] MEDS ORDERED: Lidocaine 1% 4 ML ONE (07:09)
[2020-07-27] MEDS ORDERED: Lactated Ringers 1,000 ML ONE ×2 (07:09→09:16)
[2020-07-27] MEDS ORDERED: Dexamethasone 4 MG/ML 5 ML MDV ONE (07:09)
[2020-07-27] MEDS ORDERED: Ondansetron 4 MG/2 ML SDV ONE (07:09)
[2020-07-27] MEDS ORDERED: Ketorolac 30 MG/ML SDV ONE (07:09)
[2020-07-27] MEDS ORDERED: Midazolam 1 MG/ML 2 ML SDV ONE (07:10)
[2020-07-27] MEDS ORDERED: Propofol 200 MG/20 ML SDV ONE (07:10)
[2020-07-27] MEDS ORDERED: HYDROmorphone 0.5 MG/0.5 ML Syringe ONE (07:10)
[2020-07-27] MEDS ORDERED: fentaNYL 250 MCG/5 ML SDV ONE (07:11)
--- NOTE | 2020-07-27 07:30 | PCM.PREANE ---
Preanesthetic Assessment - Procedure Proposed Procedure: Perineoplasty(bilateral labia minoraplasty) - Anesthesia/Transfusion/Family Hx Anesthesia History: Prior Anesthesia Without Reaction Family History of Anesthesia Reaction: No Transfusion History: No Prior Transfusion(s) Intubation History: Unknown - Review of Systems General: No Symptoms Pulmonary: No Symptoms (ETOH: rarely, Marijuana: 1/8 ounce per month) Cardiovascular: No Symptoms Gastrointestinal: No Symptoms Neurological: No Symptoms Other: Reports: None - Physical Assessment NPO Status Date: 07/26/20 NPO Status Time: 20:30 Vital Signs: HR: 79 B/P: 119/80 Resp: 16 Sat: 97% Temp: 98.1 Height: 1.7 m Weight: 58.06 kg ASA Class: 2 Mental Status: Alert & Oriented x3 Airway Class: Mallampati = 2 Dentition: Reports: Normal Dentition, Caries Thyro-Mental Finger Breadths: 3 Mouth Opening Finger Breadths: 3 ROM/Head Extension: Full Lungs: Clear to Auscultation, Normal Respiratory Effort Cardiovascular: Regular Rate, Regular Rhythm, No Murmurs - Allergies Allergies/Adverse Reactions: Allergies Allergy/AdvReac Type Severity Reaction Status Date / Time hydrocodone AdvReac Nausea Verified 04/05/18 08:02 - Anesthesia Plan Pre-Op Medication Ordered: None - Acknowledgements Anesthesia Type Planned: General Anesthesia Pt an Appropriate Candidate for the Planned Anesthesia: Yes Alternatives and Risks of Anesthesia Discussed w Pt/Guardian: Yes Pt/Guardian Understands and Agrees with Anesthesia Plan: Yes PreAnesthesia Questionnaire HEENT History: Reports: Glaucoma 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: Reports: Endometriosis, Other OB/BYN History: invetro - Past Surgical History HEENT Surgical History: Reports: Oral Surgery ([place] tooth extraction), Tonsillectomy GI Surgical History: Reports: Colonoscopy Female Surgical History: Reports: Other (See Below) (Fulguration of endometriosis) - HOME MEDS Home Medications: Home Meds Pnv No.95/Ferrous Fum/Folic AC [ Tablet] 1 tab PO DAILY 08/06/16 [History] Docusate Sodium [Colace] 100 mg PO BID PRN cap 04/05/18 [Rx] Ibuprofen [Motrin] 600 mg PO Q6H PRN tablet 04/05/18 [Rx] - CURRENT (IN HOUSE) MEDS Current Meds: Current Medications Lactated Ringer's (Ringers, Lactated) 1,000 mls @ 125 mls/hr IV ASDIRECTED ALAYNA Stop: 07/27/20 23:00 Lidocaine/Sodium Bicarbonate (Buffered Lidocaine 1% In Ns 8.4%) 0.25 ml IDERM ONETIME PRN PRN Reason: Prior to IV Start Stop: 07/27/20 18:00 Sodium Chloride (Saline Flush) 10 ml FLUSH ASDIRECTED PRN PRN Reason: Keep Vein Open Stop: 07/27/20 18:00 Discontinued Medications Cefazolin Sodium (Ancef) Confirm Administered Dose 2 gm .ROUTE .STK-MED ONE Stop: 07/27/20 07:10 Dexamethasone (Dexamethasone) Confirm Administered Dose 20 mg .ROUTE .STK-MED ONE Stop: 07/27/20 07:10 Fentanyl (Sublimaze) Confirm Administered Dose 250 mcg .ROUTE .STK-MED ONE Stop: 07/27/20 07:12 Hydromorphone HCl (Dilaudid) Confirm Administered Dose 0.5 mg .ROUTE .STK-MED ONE Stop: 07/27/20 07:11 Lidocaine HCl (Xylocaine-Mpf 1%) Confirm Administered Dose 4 mls @ as directed .ROUTE .STK-MED ONE Stop: 07/27/20 07:10 Lactated Ringer's (Ringers, Lactated) Confirm Administered Dose 1,000 mls @ as directed .ROUTE .STK-MED ONE Stop: 07/27/20 07:10 Ketorolac Tromethamine (Toradol) Confirm Administered Dose 30 mg .ROUTE .STK-MED ONE Stop: 07/27/20 07:10 Midazolam HCl (Versed 1 Mg/Ml) Confirm Administered Dose 2 mg .ROUTE .STK-MED ONE Stop: 07/27/20 07:11 Ondansetron HCl (Zofran) Confirm Administered Dose 4 mg .ROUTE .STK-MED ONE Stop: 07/27/20 07:10 Propofol (Diprivan 20 Ml) Confirm Administered Dose 200 mg .ROUTE .STK-MED ONE Stop: 07/27/20 07:11 Rocuronium M[place] (Zemuron) Confirm Administered Dose 50 mg .ROUTE .STK-MED ONE Stop: 07/27/20 07:10
[2020-07-27] MEDS ORDERED: fentaNYL 100 MCG/2 ML SDV IVPUSH PRN (08:30)
[2020-07-27] MEDS ORDERED: Ondansetron 4 MG/2 ML SDV IVPUSH PRN ×2 (08:30→09:40)
[2020-07-27] MEDS ORDERED: ePHEDrine 50 MG/ML SDV IVPUSH PRN (08:30)
[2020-07-27] MEDS ORDERED: Midazolam 1 MG/ML 2 ML SDV IVPUSH PRN (08:30)
[2020-07-27] MEDS ORDERED: diphenhydrAMINE 50 MG/ML SDV IVPUSH PRN (08:30)
[2020-07-27] MEDS ORDERED: Silver Sulfadiazine 1% Crm 50 GM Tube TOP ONE (09:30)
[2020-07-27] MEDS ORDERED: traMADol 50 MG Tab PO PRN (09:42)
--- NOTE | 2020-07-27 09:56 | PCM.OPNOTE ---
- General Post-Op/Procedure Note Date of Surgery/Procedure: 07/27/20 Operative Procedure(s): Bilateral labia minora plasty Findings: Labia extended approximately 4 cm from the base of the labia minora bilaterally. They were reasonably symmetrical. The hypertrophy extended from anterior all the way to posterior aspects of the labia minora. No other abnormalities were noted. Pre Op Diagnosis: 1. Bilateral labia minora hypertrophy Post-Op Diagnosis: Same Anesthesia Technique: General ET Tube Primary Surgeon: Tad Mixon Secondary Surgeon: Monse Calloway Anesthesia Provider: Jenifer Man Poultry Vaccinator: Liana Jhaveri Reason Poultry Vaccinator Was Necessary: Retraction, assistance, patient safety, quality of care Fluid Replacement, Intraop: 1,200 EBL in mLs: 20 Complications: None Condition: Good Free Text/Narrative:: Surgery duration: 77 minutes Procedure: The patient is taken to the operating room placed in supine position operating table. She received 2 g of Ancef preoperatively for infection prophylaxis and had sequential compression stockings in place for DVT prophylaxis. She is administered general endotracheal anesthesia. The patient was prepped and draped in usual fashion for this procedure. The labia were evaluated preoperatively and findings were similar to those that were documented in her history and physical. The labia appeared to be symmetrical bilaterally. The left labia minora was then grasped anteriorly and posteriorly and extended. A marking pen was used to identify the line of dissection. Attempt was made to leave 1 cm of the labia minora from anterior to posterior positions and bland the new edge of the labia with the clitoral galindo. The labia was then clamped with a straight hemostat along this line to create the tissue. The labia was cut along this crimped line. 4-0 Monocryl suture was then placed in interrupted fashion to reapproximate the edge and to provide hemostasis. The midportion of the labia was then crimped in a similar fashion excised and approximated again using 4-0 Monocryl sutures in an interrupted fashion. Anteriorly a curved hemostat was used to cramp the tissue in order to better blend the new edge of the labia with the clitoral galindo and avoid dogear from occurring. This last portion of the full length of the labia was then excised and interrupted sutures of 4-0 Monocryl were again used to reapproximate and provide hemostasis. The same procedure was done on the patient's right side attempting to obtain symmetry bilaterally. The end result showed reasonable symmetry from his left to right side. Hemostasis was confirmed at the end of the procedure. Silvadene antibiotic cream was applied to the area prior to discharge from the operating room. He was awakened from general endotracheal anesthesia. Discharge condition: Good
--- NOTE | 2020-07-27 09:58 | PCM.POSTAN ---
POST ANESTHESIA ASSESSMENT - MENTAL STATUS Mental Status: Alert - VITAL SIGNS Vital Signs: Last Vital Signs Temp 97.6 07/27/20943 Pulse 85 07/27/20943 Resp 12 07/27/20943 BP 93/52 07/27/20943 Pulse Ox 100% 07/27/20943 - RESPIRATORY Respiratory Status: Respiratory Rate WNL, Airway Patent, O2 Saturation Stable, Supplemental Oxygen - CARDIOVASCULAR CV Status: Pulse Rate WNL, Blood Pressure Stable - GASTROINTESTINAL GI Status: No Symptoms - POST OP HYDRATION Hydration Status: Adequate & Stable
--- NOTE | 2020-07-27 10:13 | PCM48HPAN ---
Post Anesthesia Note - EVALUATION WITHIN 48HRS OF ANESTHETIC Vital Signs in Normal Range: Yes Patient Participated in Evaluation: Yes Respiratory Function Stable: Yes Airway Patent: Yes Cardiovascular Function Stable: Yes Hydration Status Stable: Yes Pain Control Satisfactory: Yes Nausea and Vomiting Control Satisfactory: Yes Mental Status Recovered: Yes Vital Signs: Last Vital Signs Temp 36.4 C 07/27/20 09:44 Pulse 85 07/27/20 09:44 Resp 12 07/27/20 09:44 BP 93/52 L 07/27/20 09:44 Pulse Ox 100 07/27/20 09:44
[2020-07-27] MEDS ORDERED: Ketorolac 30 MG/ML SDV IVPUSH SCH (13:30)
[2020-07-27 13:34] VITALS: BP 114/74; PULSE 84
[2020-07-27] MEDS ORDERED: Ibuprofen 600 MG Tab PO PRN (20:00)
== END 2020-07-27 12:48 | disposition home or self-care (01) ==
LOC: JD.SDS 06:52
PROVIDERS: ATTEND Obstetrics & Gynecology
DX: N90.60 Unspecified hypertrophy of vulva (principal); F17.210 Nicotine dependence, cigarettes, uncomplicated; Z98.890 Other specified postprocedural states; Z88.8 Allergy status to other drugs, medicaments and biological substances; Z79.899 Other long term (current) drug therapy; Z98.51 Tubal ligation status; Z01.812 Encounter for preprocedural laboratory examination; Z20.828 Contact with and (suspected) exposure to other viral communicable diseases
CPT/HCPCS: 00940; 36415; 81025; 85025; A9270-GY; J0690; J1100; J1170; J1885; J2001; J2250; J2405; J2704; J2710; J3010; J7120